=== PATIENT | female | born 1970 | race American Indian/Alaskan Native ===

== ENCOUNTER 2016-02-25 22:09 | Inpatient (IN) | payer MEDICARE ==
[2016-02-25 23:43] LABS: Basophils % (Auto) 0.3 % (0.0-1.8); Eosinophils % (Auto) 6.5 % (0.0-4.3); Hematocrit 27.4 % (30.3-42.9); Hemoglobin 8.6 gm/dl (10.1-14.3); Mean Corpuscular HGB Conc 31 % (30-34); Mean Corpuscular Volume 74 fl (79-97); Platelet Count 331 K/mm3 (140-440); Red Blood Count 3.73 M/mm3 (3.65-5.03); White Blood Count 9.5 K/mm3 (4.5-11.0)
[2016-02-25 23:46] LABS: BUN/Creatinine Ratio 13.33; Blood Urea Nitrogen 20 mg/dL (7-17); Calcium 8.7 mg/dL (8.4-10.2); Carbon Dioxide 21 mmol/L (22-30); Chloride 99.5 mmol/L (98-107); Glucose 100 mg/dL (65-100); Potassium 4.4 mmol/L (3.6-5.0); Sodium 136 mmol/L (137-145)
[2016-02-25 23:53] LABS: Anion Gap 20 mmol/L
[2016-02-25 23:55] LABS: Mean Corpuscular Hemoglobin 23 pg (28-32); Red Cell Distribution Width 20.4 % (13.2-15.2)
[2016-02-26] MEDS ORDERED: DUONEB 0.5 MG-3 MG/3 ML SOLN IH ONE ×2 (01:30→05:12)
[2016-02-26] MEDS ORDERED: TESSALON PERLES PO ONE (01:30)
[2016-02-26] MEDS ORDERED: MUCINEX ER PO ONE (01:31)
[2016-02-26] MEDS ORDERED: MORPHINE IM ONE (01:31)
[2016-02-26] MEDS ORDERED: LASIX PO ONE (01:32)
[2016-02-26] MEDS ORDERED: ZOFRAN IV ONE (01:42)
[2016-02-26] MEDS ORDERED: LASIX IV ONE (01:42)
[2016-02-26] MEDS ORDERED: APRESOLINE IV ONE (01:42)
[2016-02-26] MEDS ORDERED: MORPHINE IV ONE (01:42)
[2016-02-26] MEDS ORDERED: ZITHROMAX PO ONE (01:43)
--- NOTE | 2016-02-26 01:44 | Emergency Department Report ---
HPI - General Chief Complaint: Dyspnea/Respdistress Time Seen by Provider: 02/25/16 23:05 - HPI HPI: The patient is a 45-year-old female with a history of long-standing severe hypertension and diabetes, who presents for evaluation of cough and dyspnea. The patient reports that she has expressed cough for the past one week, intermittently productive, worse for the past 2-3 days, moderate to severe, and associated with aching in quality bilateral chest pain elicited with coughing and relieved at rest. Chest secondary complaint of dyspnea for greater than 3- 4 weeks. She states that her dyspnea has been progressive, severe since her cough began this past week. She states that her dyspnea is exacerbated with exertion and lying flat, and relieved with sitting up and rest. The patient denies fever, syncope, palpitations, hemoptysis, unilateral leg swelling, recent immobilization, history of DVT or PE, hx cancer. ED Past Medical Hx - Past Medical History Previous Medical History?: Yes Hx Hypertension: Yes (non compliant) Additional medical history: CHRONIC PAIN --RIGHT LEG / LOWER BACK. OBESITY - Surgical History Past Surgical History?: Yes Hx Cholecystectomy: Yes Additional Surgical History: RIGHT LEG SURGERY. . TUBAL LIGATION - Social History Smoking Status: Former Smoker Substance Use Type: None - Medications Home Medications: Home Medications Medication Instructions Recorded Confirmed Last Taken Type ALBUTEROL Inhaler [ProAir HFA 2 puff IH QID PRN #1 inhalation 02/26/16 Unknown Rx Inhaler] Amlodipine Besylate [Norvasc] 5 mg PO DAILY 02/26/16 02/26/16 Unknown History Aspirin EC [Ecotrin] 325 mg PO QDAY 02/26/16 02/26/16 Unknown History AtorvaSTATin [Lipitor] 20 mg PO QHS 02/26/16 02/26/16 Unknown History Azithromycin [Zithromax Z-JUAN CARLOS] 250 mg PO QDAY #6 tablet 02/26/16 Unknown Rx Cyclobenzaprine HCl [Flexeril 5 MG 10 mg PO TID 02/26/16 02/26/16 Unknown History TAB] Furosemide [Lasix] 20 mg PO QDAY #30 tablet 02/26/16 Unknown Rx Ibuprofen [Motrin] 800 mg PO TID PRN 02/26/16 02/26/16 Unknown History Metformin HCl [Glucophage] 500 mg PO DAILY 02/26/16 02/26/16 Unknown History Metoprolol Tartrate [Lopressor] 100 mg PO BID 02/26/16 02/26/16 Unknown History Promethazine /Codeine 5 ml PO Q6H PRN #100 ml 02/26/16 Unknown Rx [Phenergan/Codeine 6.25-10 mg/5Ml] ED Review of Systems ROS: Stated complaint: CHEST PAIN/VOMITING Other details as noted in HPI Constitutional: denies: fever ENT: denies: throat or neck pain Respiratory: reports cough, shortness of breath Cardiovascular: denies: chest pain Endocrine: denies unexplained weight loss or gain Gastrointestinal: denies: abdominal pain, nausea Genitourinary: denies: dysuria Musculoskeletal: denies: leg swelling Skin: denies: rash Neurological: denies: headache Hematological/Lymphatic: denies: easy bleeding or easy bruising Psych: denies sadness or hopelessness Physical Exam - Physical Exam Vital Signs: Vital Signs 02/25/16 02/25/16 02/25/16 22:23 23:10 23:49 Temperature 98.5 F 98.2 F 98.5 F Pulse Rate 85 77 76 Respiratory 20 30 H 20 Rate Blood Pressure 139/84 Blood Pressure 142/97 [Left] Blood Pressure 145/88 [Right] O2 Sat by Pulse 90 96 96 Oximetry Physical Exam: General: well-nourished, well-developed, no acute distress Head: Normocephalic, atraumatic Eyes: normal sclera ENT: Mucous membranes are pink and moist Neck: trachea midline, neck supple, No neck stiffness, no cervical adenopathy Respiratory: Mildly diminished bibasilar breath sounds and rales present, no costal retractions, no respiratory distress Cardio: S1 and S2 present, no murmurs, rubs, gallops, capillary refill is brisk Abdomen: Normoactive bowel sounds, soft abdomen, no rigidity, no guarding or rebound tenderness Musc: 1+ pitting edema of the bilateral lower extremities present Skin: No rash Neuro: no facial drooping, normal speech Psych: Normal affect ED Course Vital Signs 02/25/16 02/25/16 02/25/16 22:23 23:10 23:49 Temperature 98.5 F 98.2 F 98.5 F Pulse Rate 85 77 76 Respiratory 20 30 H 20 Rate Blood Pressure 139/84 Blood Pressure 142/97 [Left] Blood Pressure 145/88 [Right] O2 Sat by Pulse 90 96 96 Oximetry ED Medical Decision Making - Lab Data Result diagrams: 02/25/16 23:18 02/25/16 23:18 - Medical Decision Making The patient was seen and examined by myself. The patient is placed on a athletic monitor and continuous pulse ox. On initial evaluation, the patient was found to be in no distress. Evaluation orders were placed. EKG was negative for findings suggestive of acute cardiac infarct. The patient is given Tessalon Perles for their cough and Mucinex for nasal congestion. The patient is given a DuoNeb breathing treatment. Chest x-ray exhibits cardiomegaly and central pulmonary vascular congestion, and otherwise was negative for focal consolidation, pneumothorax, or other emergent cardiopulmonary disease process. The patient is given a tablet of Lasix for her likely undiagnosed congestive heart failure. She is also given a tablet of azithromycin. Lab results revealed elevated BNP of 407, consistent with chest x-ray and exam findings suggestive of congestive heart failure, and otherwise labs were not concerning, including 2 sets of negative troponin. The patient was reevaluated and reported that their symptoms were markedly improved. On reexamination the patient is found to have normal respiratory rate and O2 sat on pulse oximetry, with no costal retractions or diminishment of breath sounds on auscultation. The patient is stable for discharge with outpatient follow-up. The patient is given follow-up and return instructions. The patient expressed understanding and agreed with the plan. The patient is discharged in stable condition. Critical care attestation.: If time is entered above; I have spent that time in minutes in the direct care of this critically ill patient, excluding procedure time. ED Disposition Clinical Impression: Upper respiratory infection, acute, Acute viral syndrome, Hypertensive urgency , Acute chest pain Acute CHF (congestive heart failure) Qualifiers: Congestive heart failure type: systolic Qualified Code(s): I50.21 - Acute systolic (congestive) heart failure Disposition: DISCHARGED TO HOME OR SELFCARE Is pt being admited?: No Does the pt Need Aspirin: No Condition: Stable Instructions: Heart Failure (ED), Upper Respiratory Infection (ED), Viral Syndrome (ED), Low Sodium Diet (ED), Thoracic Pain (ED), Chest Pain (ED) Additional Instructions: Make sure to follow with Dr. Boyd, the refinery operator assistant referred to today, or your gate cutter for referral to a refinery operator assistant of your choice. Prescriptions: Furosemide [Lasix] 20 mg PO QDAY #30 tablet Promethazine /Codeine [Phenergan/Codeine 6.25-10 mg/5Ml] 5 ml PO Q6H PRN #100 ml PRN Reason: cough ALBUTEROL Inhaler [ProAir HFA Inhaler] 2 puff IH QID PRN #1 inhalation PRN Reason: Shortness Of Breath Azithromycin [Zithromax Z-JUAN CARLOS] 250 mg PO QDAY #6 tablet Referrals: PRIMARY CARE, [Primary Care Provider] - 3-5 Days OKSANA BOYD MD [Staff Physician] - 3-5 Days Time of Disposition: 01:30
[2016-02-26 04:09] LABS: ISTAT Base Excess -3; ISTAT DEVICE 0; ISTAT HCO3 22.2; ISTAT PCO2 38.6 (35-45); ISTAT PH 7.368 (7.35-7.45); ISTAT PO2 48 (80-105); ISTAT SO2 82; ISTAT TCO2 23
--- NOTE | 2016-02-26 04:12 | Emergency Department Report ---
Blank Doc - Documentation Documentation: Nurse brought to my attention that prior to discharge patient oxygen dropped 82% . ABG ordered on room air confirmed hypoxia with PaO2 of 48 and oxygen of 82% on room air. Acid-base status is normal. Patient states she did have diuresis after receiving the Lasix in the ED. Patient be admitted to the hospital for new-onset CHF with associated hypoxia.
--- NOTE | 2016-02-26 05:22 | History and Physical Report ---
History of Present Illness Date of examination: 02/26/16 History of present illness: 45-year-old woman with a history of hypertension, diagnosed recently with diabetes, hyperlipidemia 3 weeks ago comes emergency room with complaints of shortness of breath. Patient has been having shortness of breath with cough productive of yellow phlegm, subjective fever and chills. She also complaining of right sided chest pain which she described as sharp, intermittent in nature lasting for 20-30 minutes, no radiation, intensity 6/10 and she cannot identify exacerbating or relieving factors. Also complaining of dyspnea on exertion, nausea vomiting, no diaphoresis or palpitation. She [place] [facility] [place], she spent one week in the hospital, it's unclear what workup was done very she stayed in addition to the diagnosis of diabetes, hyperlipidemia she was also told that she had fluid around her heart, review of her medications, she was not discharged on diuretics. The patient was given 80 mg IV Lasix in the emergency room, sent for discharge but was noted to be hypoxic off oxygen Patient denies chest pain, palpitation, abdominal pain, hematochezia, dysuria, frequency, focal weakness, dysarthria, fever chills, polydipsia polyuria, hot or cold intolerance, easy bruisability, or rash or bleeding from mucosal membrane, rhinorrhea, epistaxis, earache, tinnitus, blurry vision, eye discharge , anxiety, depression. Other review of systems negative PAST SURGICAL HISTORY: Tubal ligation, , cholecystectomy SOCIAL HISTORY: Denies alcohol, tobacco, drugs FAMILY HISTORY: Hypertension diabetes Medications and Allergies Allergies Allergy/AdvReac Type Severity Reaction Status Date / Time No Known Allergies Allergy Verified 06/28/15 20:12 Home Medications Medication Instructions Recorded Confirmed Last Taken Type ALBUTEROL Inhaler [ProAir HFA 2 puff IH QID PRN #1 inhalation 02/26/16 Unknown Rx Inhaler] Amlodipine Besylate [Norvasc] 5 mg PO DAILY 02/26/16 02/26/16 Unknown History Aspirin EC [Ecotrin] 325 mg PO QDAY 02/26/16 02/26/16 Unknown History AtorvaSTATin [Lipitor] 20 mg PO QHS 02/26/16 02/26/16 Unknown History Azithromycin [Zithromax Z-JUAN CARLOS] 250 mg PO QDAY #6 tablet 02/26/16 Unknown Rx Cyclobenzaprine HCl [Flexeril 5 MG 10 mg PO TID 02/26/16 02/26/16 Unknown History TAB] Furosemide [Lasix] 20 mg PO QDAY #30 tablet 02/26/16 Unknown Rx Ibuprofen [Motrin] 800 mg PO TID PRN 02/26/16 02/26/16 Unknown History Metformin HCl [Glucophage] 500 mg PO DAILY 02/26/16 02/26/16 Unknown History Metoprolol Tartrate [Lopressor] 100 mg PO BID 02/26/16 02/26/16 Unknown History Promethazine /Codeine 5 ml PO Q6H PRN #100 ml 02/26/16 Unknown Rx [Phenergan/Codeine 6.25-10 mg/5Ml] Active Meds: Active Medications Methylprednisolone Sodium Succinate (Solu-Medrol) 125 mg IV Q6H SONYA Exam - Physical Exam Narrative exam: Gen. appearance: Patient lying in bed, no apparent distress HEENT: Normocephalic, atraumatic, pupils equally round and reactive to light, extraocular movement intact, and no sclericterus,. No JVD or thyromegaly or nodule,neck supple, no carotid bruit ,mucous membranes moist, no exudate or erythema Heart: S1, S2, regular rate and rhythm Lungs: Diffuse rhonchi bilaterally, breathing comfortable Abdomen: Positive bowel sounds, nontender, nondistended, no organomegaly Extremity: No edema, cyanosis, clubbing Skin: No rash, nodules, warm, dry Neuro: Oriented 3, cranial nerves II-12 intact, speech is fluent, motor and sensory intact - Constitutional Vitals: Temp Pulse Resp BP Pulse Ox 98.5 F 78 24 142/97 96 02/25/16 23:49 02/26/16 02:20 02/26/16 02:20 02/25/16 23:49 02/25/16 23:49 Results - Labs CBC & Chem 7: 02/25/16 23:18 02/25/16 23:18 Labs: Abnormal lab results 02/25/16 02/25/16 02/26/16 Range/Units 23:18 23:18 03:59 Hgb 8.6 L (10.1-14.3) gm/dl Hct 27.4 L (30.3-42.9) % MCV 74 L (79-97) fl MCH 23 L (28-32) pg RDW 20.4 H (13.2-15.2) % Lymph % (Auto) 9.9 L (13.4-35.0) % [place] % (Auto) 13.6 H (0.0-7.3) % Eos % (Auto) 6.5 H (0.0-4.3) % Lymph # 0.9 L (1.2-5.4) K/mm3 [place] # 1.3 H (0.0-0.8) K/mm3 Eos # 0.6 H (0.0-0.4) K/mm3 POC ABG pO2 48 L (80-105) Sodium 136 L (137-145) mmol/L Carbon Dioxide 21 L (22-30) mmol/L BUN 20 H (7-17) mg/dL Creatinine 1.5 H (0.7-1.2) mg/dL - Imaging and Cardiology EKG: image reviewed (nsr 84) Chest x-ray: image reviewed (b/l opacities, readf by me) Assessment and Plan Acute bronchitis Hypertension uncontrolled Diabetes type 2 Hyperlipidemia Admits medicine Start high-dose IV steroids, IV Levaquin, IV hydralazine for blood pressure control Obtain sputum culture, CT chest, cardiac enzymes [place] [facility] [place] fingersticks initiate insulin sliding scale Start DVT prophylaxis
--- NOTE | 2016-02-26 06:27 | XRay Report ---
FINAL REPORT PROCEDURE: CT CHEST WO CON TECHNIQUE: Computerized axial tomography of the chest was performed without contrast material. This study is performed without intravenous contrast and the sensitivity for pathology, including neoplasms, adenopathy, abscess, pulmonary embolism and aortic dissection, is reduced. HISTORY: sob COMPARISON: No prior studies are available for comparison. TECHNICAL QUALITY: Satisfactory. FINDINGS: Heart and pericardium: Normal. Thoracic aorta: Normal. Pulmonary vasculature: Normal. Lymph nodes: No enlarged thoracic lymph nodes. Lungs: There is a mild scattered pneumonitis pattern in both lungs. No effusion or pneumothorax. The central airway is patent. Pleural space: No effusion, thickening, or pneumothorax. Musculoskeletal structures: No significant abnormality. Upper abdominal structures: No significant abnormality. IMPRESSION: Mild scattered pneumonitis pattern throughout both lungs. No effusion or pneumothorax..
[2016-02-26] MEDS ORDERED: D50W (25GM) IV PRN (06:33)
[2016-02-26] MEDS ORDERED: MILK OF MAGNESIA PO PRN (06:33)
[2016-02-26] MEDS ORDERED: ZOFRAN IV PRN (06:33)
[2016-02-26] MEDS ORDERED: DULCOLAX PR PRN (06:33)
[2016-02-26] MEDS ORDERED: TYLENOL PO PRN (06:33)
[2016-02-26] MEDS: LEVAQUIN 750MG/150ML 150 ML IV SCH ×2 (07:00→09:01)
[2016-02-26 07:27] LABS: Creatine Kinase 37 units/L (30-135); Creatine Kinase MB < 1.0 ng/mL (0.0-4.0)
[2016-02-26] MEDS ORDERED: LOVENOX SUB-Q SCH (10:00)
[2016-02-26] MEDS ORDERED: LEVAQUIN 750MG/150ML 150 ML IV SCH (11:00)
[2016-02-26 14:40] LABS: Creatine Kinase 29 units/L (30-135); Creatine Kinase MB < 1.0 ng/mL (0.0-4.0)
[2016-02-26] MEDS: APRESOLINE IV PRN (21:55)
[2016-02-26] MEDS: PERCOCET 5/325 PO PRN (21:56)
[2016-02-26] MEDS: NOVOLOG SUB-Q SCH (21:58)
--- NOTE | 2016-02-26 23:47 | Admit Criteria Form ---
Admission Criteria Documentation: HEART FAILURE: COMMON COMPLICATIONS Clinical Indications for Inpatient Care (Place 'X' for any and all applicable criteria): Ongoing inpatient care may be indicated for heart failure with ANY ONE of the following (1)(2)(3)(4)(5): [ ]I. Ongoing need for care for primary condition requiring frequent therapy adjustments because of changes in cardiac function (eg, drug dosage changes for drugs that are renally metabolized) [X ]II. New-onset heart failure [ ]III. Heart failure with decreased urine output not responsive to attempts to optimize volume status [ ]IV. Acute cardiac ischemia causing or associated with failure [X ]V. Complications of heart failure, including ANY ONE of the following: [ ]a) Pericardial effusion [ ]b) Symptomatic pleural effusion [ X]c) O2 saturation <90% or PO2 < 60 mm Hg (8.0 kPa) on room air or require baseline supplemental O2 [ ]d) Tachypnea [ ]e) Dyspnea [ ]f) Syncope [ ]g) Change in mental status [ ]h) Acute renal insufficiency that is severe (reduction of more than 50% in estimated glomerular filtration rate from baseline) or progressive reduction of more than 25% in estimated glomerular filtration rate from baseline, with creatinine continuing to rise) [ ]i) Hemodynamic instability [ ]j) Anasarca [ ]k) Clinically significant metabolic abnormalities due to heart failure (eg, new-onset metabolic acidosis) Extended stay beyond goal length of stay for primary condition may be needed until ALL of the following are present(1)(3): [ ]a) Stable and effective diuretic regimen established (or patient on stable dialysis regimen if in chronic renal failure) [ ]b) Breathing comfortably at rest [ ]c) Saturation of arterial oxygen greater than 90% or at acceptable baseline [ ]d) Pulmonary edema absent or improved [ ]e) Hemodynamic stability [ ]f) Volume status acceptable on oral medication [ ]g) Peripheral or sacral edema absent or improved [ ]h) Renal function stable and manageable at a lower level of care [ ]i) Complications (eg, pleural effusion) resolved or manageable at a lower level of care [ ]j) Patient or caregiver has received written discharge instructions or educational material addressing activity level, diet, discharge medications, follow-up appointment, weight monitoring, and what to do if symptoms worsen The original [employer] content created by [employer] has been revised. The portions of the content which have been revised are identified through the use of italic text or in bold, and [facility] has neither reviewed nor approved the modified material.All other unmodified content is copyright [facility]. Please see references footnoted in the original [facility] edition 2016 Admission Criteria Met: Yes
[2016-02-27] MEDS: PERCOCET 5/325 PO PRN ×2 (05:05→17:09)
[2016-02-27] MEDS ORDERED: FLUARIX QUAD 2016-2017(36 MOS+) IM ONE ×2 (06:05→12:00)
[2016-02-27] MEDS: LEVAQUIN 750MG/150ML 150 ML IV SCH (06:24)
[2016-02-27 08:24] LABS: Basophils % (Auto) 0.1 % (0.0-1.8); Hematocrit 26.4 % (30.3-42.9); Hemoglobin 8.2 gm/dl (10.1-14.3); Mean Corpuscular HGB Conc 31 % (30-34); Mean Corpuscular Volume 73 fl (79-97); Platelet Count 329 K/mm3 (140-440); Red Blood Count 3.62 M/mm3 (3.65-5.03); Red Cell Distribution Width 19.9 % (13.2-15.2); White Blood Count 8.7 K/mm3 (4.5-11.0)
[2016-02-27 08:27] LABS: Mean Corpuscular Hemoglobin 23 pg (28-32)
[2016-02-27] MEDS: LOPRESSOR PO SCH ×2 (11:00→22:38)
[2016-02-27] MEDS: LOVENOX SUB-Q SCH (11:47)
[2016-02-27] MEDS: NORVASC PO SCH (11:47)
[2016-02-27] MEDS: NOVOLOG SUB-Q SCH ×3 (12:00→23:52)
--- NOTE | 2016-02-27 19:22 | Progress Note ---
Assessment and Plan Assessment and plan: --Acute exacerbation of bronchial asthma Oxygen titrated to O2 sats more than 90%, nebulizers, IV steroids Inhalation steroids supportive care --Acute bronchitis Bronchodilators, IV antibiotics and IV steroids --Hypertension uncontrolled Resume home antihypertensives, when necessary medications --Diabetes type 2; Accu-Chek sliding scale coverage and ADA diet Insulin as needed --Hyperlipidemia ,stable on lipid-lowering medications --DVT prophylaxis with Lovenox Closely monitor the patient and adjust management as needed Home oxygen evaluation at the time of discharge Possible discharge in 1-2 days if stable Plan of care discussed with the patient as well as the nurse History Interval history: Patient seen and evaluated medical records reviewed Patient feels slightly better still complains of shortness of breath and wheezing Denies any chest pain Alert awake oriented 3 not in acute distress Vital signs reviewed stable Hospitalist Physical - Constitutional Vitals: Temp Pulse Resp BP Pulse Ox 97.8 F 104 H 20 169/91 90 02/27/16 17:38 02/27/16 17:38 02/27/16 17:38 02/27/16 17:38 02/27/16 17:38 General appearance: Present: no acute distress, well-nourished - EENT Eyes: Present: PERRL, EOM intact - Neck Neck: Present: supple, normal ROM - Respiratory Respiratory effort: normal Respiratory: bilateral: diminished, wheezing, negative: rales, rhonchi - Cardiovascular Rhythm: regular Heart Sounds: Present: S1 & S2 - Extremities Extremities: no ischemia, pulses intact, pulses symmetrical Peripheral Pulses: within normal limits - Abdominal General gastrointestinal: soft, non-tender, non-distended, normal bowel sounds - Integumentary Integumentary: Present: clear, warm - Psychiatric Psychiatric: appropriate mood/affect, cooperative - Neurologic Neurologic: CNII-XII intact, moves all extremities Results - Labs CBC & Chem 7: 02/27/16 08:10 02/25/16 23:18 Labs: Laboratory Last Values WBC 8.7 K/mm3 (4.5-11.0) 02/27/16 08:10 RBC 3.62 M/mm3 (3.65-5.03) L 02/27/16 08:10 Hgb 8.2 gm/dl (10.1-14.3) L 02/27/16 08:10 Hct 26.4 % (30.3-42.9) L 02/27/16 08:10 MCV 73 fl (79-97) L 02/27/16 08:10 MCH 23 pg (28-32) L 02/27/16 08:10 MCHC 31 % (30-34) 02/27/16 08:10 RDW 19.9 % (13.2-15.2) H 02/27/16 08:10 Plt Count 329 K/mm3 (140-440) 02/27/16 08:10 Lymph % (Auto) 6.7 % (13.4-35.0) L 02/27/16 08:10 [place] % (Auto) 6.6 % (0.0-7.3) 02/27/16 08:10 Eos % (Auto) 0.0 % (0.0-4.3) 02/27/16 08:10 Baso % (Auto) 0.1 % (0.0-1.8) 02/27/16 08:10 Lymph # 0.6 K/mm3 (1.2-5.4) L 02/27/16 08:10 [place] # 0.6 K/mm3 (0.0-0.8) 02/27/16 08:10 Eos # 0.0 K/mm3 (0.0-0.4) 02/27/16 08:10 Baso # 0.0 K/mm3 (0.0-0.1) 02/27/16 08:10 Seg Neutrophils % 86.6 % (40.0-70.0) H 02/27/16 08:10 Seg Neutrophils # 7.5 K/mm3 (1.8-7.7) 02/27/16 08:10 POC ABG pH 7.368 (7.35-7.45) 02/26/16 03:59 POC ABG pCO2 38.6 (35-45) 02/26/16 03:59 POC ABG pO2 48 (80-105) L 02/26/16 03:59 POC ABG HCO3 22.2 02/26/16 03:59 POC ABG Total CO2 23 02/26/16 03:59 POC ABG O2 Sat 82 02/26/16 03:59 POC ABG Base Excess -3 02/26/16 03:59 FiO2 21 % 02/26/16 03:59 Sodium 136 mmol/L (137-145) L 02/25/16 23:18 Potassium 4.4 mmol/L (3.6-5.0) 02/25/16 23:18 Chloride 99.5 mmol/L (98-107) 02/25/16 23:18 Carbon Dioxide 21 mmol/L (22-30) L 02/25/16 23:18 Anion Gap 20 mmol/L 02/25/16 23:18 BUN 20 mg/dL (7-17) H 02/25/16 23:18 Creatinine 1.5 mg/dL (0.7-1.2) H 02/25/16 23:18 Estimated GFR 46 ml/min 02/25/16 23:18 BUN/Creatinine Ratio 13.33 % 02/25/16 23:18 Glucose 100 mg/dL (65-100) 02/25/16 23:18 POC Glucose 138 (70-105) H 02/27/16 15:56 Calcium 8.7 mg/dL (8.4-10.2) 02/25/16 23:18 Total Creatine Kinase 29 units/L (30-135) L 02/26/16 13:49 CK-MB (CK-2) < 1.0 ng/mL (0.0-4.0) 02/26/16 13:49 CK-MB (CK-2) Rel Index 3.4 (0-4) 02/26/16 13:49 Troponin T < 0.010 ng/mL (0.00-0.029) 02/26/16 13:49 NT-Pro-B Natriuret Pep 407.3 pg/mL (0-450) 02/26/16 01:28 HCG, Qual Negative (Negative) 02/25/16 23:18
[2016-02-27] MEDS: APRESOLINE IV PRN (21:06)
[2016-02-27] MEDS ORDERED: ROBITUSSIN PO PRN (21:54)
[2016-02-28] MEDS: PERCOCET 5/325 PO PRN (02:18)
[2016-02-28] MEDS: LEVAQUIN 750MG/150ML 150 ML IV SCH (06:32)
[2016-02-28] MEDS: NOVOLOG SUB-Q SCH ×2 (08:50→13:06)
[2016-02-28] MEDS: NORVASC PO SCH (09:28)
[2016-02-28] MEDS: LOVENOX SUB-Q SCH (09:28)
[2016-02-28] MEDS: LOPRESSOR PO SCH (09:28)
[2016-02-28 11:31] VITALS: BP 163/90
--- NOTE | 2016-02-28 13:39 | Discharge Summary ---
Providers - Providers Date of Admission: 02/26/16 06:33 Date of discharge: 02/28/16 Attending physician: CRESENCIO MARSH Primary care physician: INFORMATION SECURITY ARCHITECT Hospitalization Condition: Stable Disposition: DISCHARGED TO HOME OR SELFCARE Time spent for discharge: 32 min Core Measure Documentation - Palliative Care Palliative Care/ Comfort Measures: Not Applicable - Core Measures Any of the following diagnoses?: history only Exam - Constitutional Vitals: Temp Pulse Resp BP Pulse Ox 97.5 F L 82 18 163/90 98 02/28/16 11:30 02/28/16 13:13 02/28/16 11:30 02/28/16 11:30 02/28/16 11:30 General appearance: Present: no acute distress, well-nourished - EENT Eyes: Present: PERRL, EOM intact - Neck Neck: Present: supple, normal ROM - Respiratory Respiratory effort: normal Respiratory: bilateral: diminished, negative: rales, rhonchi, wheezing - Cardiovascular Rhythm: regular Heart Sounds: Present: S1 & S2 - Extremities Extremities: no ischemia, pulses intact, pulses symmetrical Peripheral Pulses: within normal limits - Abdominal General gastrointestinal: Present: soft, non-tender, non-distended, normal bowel sounds - Integumentary Integumentary: Present: clear, warm - Musculoskeletal Musculoskeletal: strength equal bilaterally - Psychiatric Psychiatric: appropriate mood/affect, cooperative - Neurologic Neurologic: CNII-XII intact, moves all extremities Plan Activity: no restrictions Diet: diabetic Additional Instructions: Patient was evaluated for home oxygen set up. Not a candidate for home oxygen as her room air O2 sats are between 94-95% Follow up with: OKSANA BOYD MD [Staff Physician] - 3-5 Days PRIMARY CARE, [Primary Care Provider] - 3-5 Days Prescriptions: ALBUTEROL Inhaler [ProAir HFA Inhaler] 2 puff IH QID PRN #1 inhalation PRN Reason: Shortness Of Breath Azithromycin [Zithromax Z-JUAN CARLOS] 250 mg PO QDAY #6 tablet Furosemide [Lasix TAB] 20 mg PO QDAY #30 tablet Prednisone [predniSONE 10 mg (6-Day Pack, 21 Tabs)] 10 mg PO .TAPER #1 tab.ds.pk oxyCODONE /ACETAMINOPHEN [Percocet 5/325] 1 tab PO QHS PRN #7 tablet PRN Reason: Pain
[2016-02-29] MEDS ORDERED: LEVAQUIN PO SCH (10:00)
== END 2016-02-28 15:05 | disposition home or self-care (01) | DRG 304 ==
LOC: ED 22:09 → 4A 02-26 06:33
PROVIDERS: ADMIT Internal Medicine; ATTEND Internal Medicine
PROC: 3E0234Z Introduction of Serum, Toxoid and Vaccine into Muscle, Percutaneous Approach (ICD-10-PCS; principal; 2016-02-27)
DX: I16.0 Hypertensive urgency (principal); I50.21 Acute systolic (congestive) heart failure; J45.901 Unspecified asthma with (acute) exacerbation; J20.9 Acute bronchitis, unspecified; E11.9 Type 2 diabetes mellitus without complications; E78.5 Hyperlipidemia, unspecified; G89.29 Other chronic pain; M54.5 Low back pain; E66.9 Obesity, unspecified; I11.0 Hypertensive heart disease with heart failure; Z91.19 Patient's noncompliance with other medical treatment and regimen; Z90.49 Acquired absence of other specified parts of digestive tract; Z68.37 Body mass index [BMI] 37.0-37.9, adult; Z98.890 Other specified postprocedural states; Z98.51 Tubal ligation status; Z87.891 Personal history of nicotine dependence; Z79.82 Long term (current) use of aspirin; Z79.899 Other long term (current) drug therapy; Z79.84 Long term (current) use of oral hypoglycemic drugs; Z23 Encounter for immunization; Z82.49 Family history of ischemic heart disease and other diseases of the circulatory system; Z83.3 Family history of diabetes mellitus
CPT/HCPCS: 36415; 71020; 71250; 80048; 82550; 82553; 82803; 82962; 83880; 84484; 84703; 85025; 90686; 93005; 93010; 94640; 94644; 94760; 96374; 96375; J0360; J1650; J1815; J1940; J1956; J2270; J2405; J2930

== ENCOUNTER 2016-04-12 15:30 | Outpatient (CLI) | payer MEDICARE | END 2016-04-12 15:31 | disposition home or self-care (01) | LOC: LABHHL 15:30 | PROVIDERS: ATTEND Surgery | DX: N63 Unspecified lump in breast (principal) | CPT/HCPCS: 88305 ==

== ENCOUNTER 2016-05-12 09:40 | Emergency (ER) | payer MEDICARE ==
[2016-05-12] MEDS ORDERED: NORCO 5/325 PO ONE (16:25)
--- NOTE | 2016-05-12 16:28 | Emergency Department Report ---
HPI - General Chief Complaint: Seizure Time Seen by Provider: 05/12/16 16:11 - HPI HPI: This is a 45-year-old -[place] female who presents to the emergency department via EMS from home with complaint of a witnessed seizure. The patient was taking a shower this morning and says that the last thing she remembers is putting soap on her hands and then woke up in the ambulance. The patient does have a history of seizures but has been about a year or so since her last seizure. However the patient stopped taking seizure medication for years ago, back in 2012. This occurred because the patient was switching doctors, locations, insurance, and never was able to follow-up. However the patient does not remember exactly which seizure medication she used to be on. The seizure was witnessed by the patient's daughter. She allegedly went unconscious and went down in the bathtub and bit her tongue as she was bleeding from her mouth. The patient is currently awake and alert and says she complains of a headache. She has a past medical history of CHF, diabetes, hypertension, seizures, chronic back pains. She has a past surgical history of right leg surgery, and tubal ligation. She currently has a primary care and insurance through the [employer]. ED Past Medical Hx - Past Medical History Previous Medical History?: Yes Hx Hypertension: Yes Hx Congestive Heart Failure: Yes Hx Diabetes: Yes Hx Seizures: Yes (2011) Hx Asthma: No Hx COPD: No Additional medical history: CHRONIC PAIN --RIGHT LEG / LOWER BACK. OBESITY - Surgical History Past Surgical History?: Yes Hx Cholecystectomy: Yes Additional Surgical History: RIGHT LEG SURGERY. . TUBAL LIGATION - Social History Smoking Status: Former Smoker Substance Use Type: Prescribed - Medications Home Medications: Home Medications Medication Instructions Recorded Confirmed Last Taken Type ALBUTEROL Inhaler [ProAir HFA 2 puff IH QID PRN #1 inhalation 02/26/16 Unknown Rx Inhaler] Amlodipine Besylate [Norvasc] 5 mg PO DAILY 02/26/16 02/26/16 Unknown History Aspirin EC [Aspirin Enteric Coated 325 mg PO QDAY 02/26/16 02/26/16 Unknown History TAB] AtorvaSTATin [Lipitor] 20 mg PO QHS 02/26/16 02/26/16 Unknown History Azithromycin [Zithromax Z-JUAN CARLOS] 250 mg PO QDAY #6 tablet 02/26/16 Unknown Rx Cyclobenzaprine HCl [Flexeril 5 MG 10 mg PO TID 02/26/16 02/26/16 Unknown History TAB] Furosemide [Lasix TAB] 20 mg PO QDAY #30 tablet 02/26/16 Unknown Rx Metformin HCl [Glucophage] 500 mg PO DAILY 02/26/16 02/26/16 Unknown History Metoprolol Tartrate [Lopressor] 100 mg PO BID 02/26/16 02/26/16 Unknown History Prednisone [predniSONE 10 mg 10 mg PO .TAPER #1 tab.ds.pk 02/28/16 Unknown Rx (6-Day Pack, 21 Tabs)] oxyCODONE /ACETAMINOPHEN [Percocet 1 tab PO QHS PRN #7 tablet 02/28/16 Unknown Rx 5/325] levETIRAcetam [Keppra TAB] 500 mg PO BID #60 tablet 05/12/16 Unknown Rx ED Review of Systems ROS: Stated complaint: SEIZURES Other details as noted in HPI Comment: All other systems reviewed and negative Constitutional: denies: chills, fever Eyes: denies: eye pain, eye discharge, vision change ENT: other (bit her tongue). denies: ear pain, throat pain Respiratory: denies: cough, shortness of breath, wheezing Cardiovascular: denies: chest pain, palpitations Gastrointestinal: denies: abdominal pain, nausea, diarrhea Genitourinary: denies: urgency, dysuria, discharge Musculoskeletal: denies: back pain, joint swelling, arthralgia Skin: denies: rash, lesions Neurological: headache. denies: numbness Physical Exam - Physical Exam Vital Signs: Vital Signs 05/12/16 09:53 Temperature 99.3 F Pulse Rate 99 H Respiratory 20 Rate Blood Pressure 152/107 O2 Sat by Pulse 99 Oximetry Physical Exam: GENERAL: The patient is well-developed well-nourished. HEENT: Normocephalic. Atraumatic. Extraocular motions are intact. Patient has moist mucous membranes. Pupils equal reactive to light bilaterally. No nystagmus. Oropharynx is clear. There is a small laceration to the right lateral underside of the tongue but no current bleeding and it is very small at less than 0.5 cm. NECK: Supple. Trachea is midline. CHEST/LUNGS: Clear to auscultation. There is no respiratory distress noted. HEART/CARDIOVASCULAR: Regular. There is no tachycardia. There is no gallop rub or murmur. ABDOMEN: Abdomen is soft, nontender. Patient has normal bowel sounds. There is no abdominal distention. SKIN: Warm and dry. NEURO: The patient is awake, alert, and oriented. The patient is cooperative. The patient has no focal neurologic deficits. The patient has normal speech. Cranial nerves II through XII grossly intact. MUSCULOSKELETAL: There is no tenderness or deformity. There is no limitation range of motion. There is no evidence of acute injury. Muscle strength 5 out of 5 for upper and lower extremity bilaterally. ED Course Vital Signs 05/12/16 09:53 Temperature 99.3 F Pulse Rate 99 H Respiratory 20 Rate Blood Pressure 152/107 O2 Sat by Pulse 99 Oximetry ED Medical Decision Making - Lab Data Result diagrams: 05/12/16 16:36 05/12/16 16:36 - EKG Data -: EKG Interpreted by [facility] EKG shows normal: axis, intervals, QRS complexes, ST-T waves Rate: normal - EKG Data When compared to previous EKG there are: previous EKG unavailable Interpretation: other (Junctional Rhythm) - Radiology Data Radiology results: report reviewed CT of the head without contrast shows no acute intracranial abnormality. Ill- defined bilateral periventricular hypodensities may represent prominent perivascular spaces versus microvascular angiopathy. Paranasal sinus disease. Critical care attestation.: If time is entered above; I have spent that time in minutes in the direct care of this critically ill patient, excluding procedure time. ED Disposition Clinical Impression: Seizure, Hypokalemia, Polysubstance abuse Hypertension Qualifiers: Hypertension type: essential hypertension Qualified Code(s): I10 - Essential ( primary) hypertension Disposition: DISCHARGED TO HOME OR SELFCARE Is pt being admited?: No Condition: Stable Instructions: Epilepsy (ED), Polysubstance Abuse (ED), Hypokalemia (ED), Hypertension (ED) Additional Instructions: Please follow-up with your primary care doctor through [facility] and it is recommended that she will also see a neurologist regarding her seizures. Please avoid any possible substance abuse as a will decrease your seizure threshold. I have started you on Keppra, a seizure medication, to be taken twice daily. Return to the emergency department with any worsening of your symptoms or any acute distress. Prescriptions: levETIRAcetam [Keppra TAB] 500 mg PO BID #60 tablet Referrals: RUPERTO LEGER FNP [Primary Care Provider] - 3-5 Days Time of Disposition: 19:46
[2016-05-12] MEDS ORDERED: KEPPRA 1,000 MG/NS 0.75% 100ML 1,000 MG/100 ML BAG IV ONE (16:37)
[2016-05-12] MEDS ORDERED: MORPHINE IV ONE (16:38)
[2016-05-12 17:01] LABS: Eosinophils % (Auto) 9.7 % (0.0-4.3); Hemoglobin 9.4 gm/dl (10.1-14.3); Mean Corpuscular HGB Conc 31 % (30-34); Mean Corpuscular Volume 73 fl (79-97); Platelet Count 221 K/mm3 (140-440); Red Blood Count 4.27 M/mm3 (3.65-5.03); White Blood Count 5.4 K/mm3 (4.5-11.0)
[2016-05-12 17:16] LABS: Mean Corpuscular Hemoglobin 22 pg (28-32); Red Cell Distribution Width 21.3 % (13.2-15.2)
[2016-05-12 17:19] LABS: Alanine Aminotransferase 7 units/L (7-56); Albumin 3.9 g/dL (3.9-5); Alkaline Phosphatase 38 units/L (35-129); Anion Gap 16 mmol/L; BUN/Creatinine Ratio 11.42; Bilirubin,Total 0.3 mg/dL (0.1-1.2); Blood Urea Nitrogen 8 mg/dL (7-17); Calcium 8.9 mg/dL (8.4-10.2); Carbon Dioxide 26 mmol/L (22-30); Chloride 96.6 mmol/L (98-107); Glucose 82 mg/dL (65-100); Sodium 136 mmol/L (137-145); Total Protein 7.7 g/dL (6.3-8.2)
--- NOTE | 2016-05-12 17:33 | Cat Scan Report ---
FINAL REPORT EXAM: CT HEAD/BRAIN WO CON HISTORY: Headache TECHNIQUE: CT imaging acquired through the head without intravenous contrast. Transaxial reformations are provided. PRIORS: None. FINDINGS: The ventricles, cisterns and sulci are normal. No intraparenchymal or extra-axial mass, hemorrhage, or mass effect. Ill-defined hypodensities adjacent to the superior left lateral ventricle and bilaterally adjacent to the basal ganglia. Pascual and white-matter differentiation is otherwise unremarkable. Normal spherical shape of the globes. Partially imaged paranasal sinuses are remarkable for moderate sphenoid, ethmoid and left maxillary mucosal thickening without visualized fluid level. The mastoid air cells are clear. Hyperostosis frontalis. No skull fracture. IMPRESSION: No acute intracranial abnormality. Ill-defined bilateral periventricular hypodensities may represent prominent perivascular spaces or sequela of microvascular angiopathy, among other less common etiologies. Consider MRI follow-up as clinically warranted. Paranasal sinus disease without visualized fluid level, as detailed above, which may contribute to patient's symptoms.
[2016-05-12] MEDS ORDERED: K-DUR PO ONE (18:04)
[2016-05-12] MEDS ORDERED: KEPPRA PO ONE (18:09)
[2016-05-12] MEDS ORDERED: PERCOCET 5/325 PO ONE (18:09)
[2016-05-12 18:25] LABS: Urine Drugs of Abuse Note Disclamer
[2016-05-12 19:02] LABS: Bacteria,Urine 1+ /HPF (Negative); Mucus,Urine FEW /HPF
[2016-05-12 19:03] LABS: Bilirubin,Urine NEG (Negative); Blood,Urine NEG (Negative); Ketones,Urine NEG (Negative); Leukocyte Esterase,Urine TR (Negative); Nitrite,Urine NEG (Negative)
[2016-05-12 20:09] VITALS: BP 154/96
== END 2016-05-12 20:06 | disposition home or self-care (01) ==
LOC: ED 09:40
DX: R56.9 Unspecified convulsions (principal); E87.6 Hypokalemia; F19.10 Other psychoactive substance abuse, uncomplicated; I10 Essential (primary) hypertension; I50.9 Heart failure, unspecified; E11.9 Type 2 diabetes mellitus without complications; Z87.891 Personal history of nicotine dependence
CPT/HCPCS: 36415; 70450; 80053; 80307; 81001; 81025; 82962; 85025; 93005; 93010; 99285; G0480; 80320; J1953; J2270

== ENCOUNTER 2016-05-26 02:57 | Emergency (ER) | payer MEDICARE ==
[2016-05-26 05:47] LABS: Hematocrit 31.5 % (30.3-42.9); Hemoglobin 9.7 gm/dl (10.1-14.3); Mean Corpuscular HGB Conc 31 % (30-34); Mean Corpuscular Volume 73 fl (79-97); Platelet Count 422 K/mm3 (140-440); Red Blood Count 4.33 M/mm3 (3.65-5.03); White Blood Count 10.3 K/mm3 (4.5-11.0)
[2016-05-26 05:49] LABS: Mean Corpuscular Hemoglobin 22 pg (28-32)
[2016-05-26 06:03] LABS: Anion Gap 22 mmol/L; BUN/Creatinine Ratio 21.11; Blood Urea Nitrogen 19 mg/dL (7-17); Calcium 9.5 mg/dL (8.4-10.2); Carbon Dioxide 18 mmol/L (22-30); Chloride 105.5 mmol/L (98-107); Glucose 125 mg/dL (65-100); Potassium 4.3 mmol/L (3.6-5.0); Sodium 141 mmol/L (137-145)
[2016-05-26 06:34] LABS: Basophils % (Manual) 0 % (0.0-1.8); Blastocytes % (Manual) 0 %; Eosinophils % (Manual) 0 % (0.0-4.3)
[2016-05-26 06:35] LABS: Anisocytosis 1+; Diff Status Complete; Hypochromasia 1+; Platelet Estimate Consistent w Auto; Polychromasia Rare; Schistocytes Rare
--- NOTE | 2016-05-26 09:15 | XRay Report ---
Chest 2 views: History: Shortness of breath. Findings: Cardiomegaly. Trachea is midline. Pulmonary venous congestion being more pronounced on the right side. Normal CP angles. No consolidation. Impression: Probable early CHF.
[2016-05-26] MEDS ORDERED: NORCO 5/325 PO ONE (11:42)
[2016-05-26] MEDS ORDERED: LASIX PO ONE (11:42)
--- NOTE | 2016-05-26 11:43 | Emergency Department Report ---
ED Shortness of Breath HPI - General Chief Complaint: Dyspnea/Respdistress Stated Complaint: SOB/CHEST PAIN Time Seen by Provider: 05/26/16 11:27 Source: patient Mode of arrival: Ambulatory Limitations: No Limitations - History of Present Illness Initial Comments: This is a 45-year-old [place] female who reports increased dyspnea over the past several days. She does indicate she has history of CHF. She states that she has not been taking her medications for the past week. She's also had a mild cough. She denies fevers associated with this. She reports normal urination. States he has good urine output when she is taking her Lasix. She is asking for medication refills at this time. MD Complaint: shortness of breath Severity: moderate Pain Scale: 4 Improves With: rest Worsens With: lying flat, exertion Associated Symptoms: cough - Related Data Home Oxygen Therapy: No Home Medications Medication Instructions Recorded Confirmed Last Taken Aspirin EC [Aspirin Enteric Coated 325 mg PO QDAY 02/26/16 02/26/16 Unknown TAB] Cyclobenzaprine HCl [Flexeril 5 MG 10 mg PO TID 02/26/16 02/26/16 Unknown TAB] Metformin HCl [Glucophage] 500 mg PO DAILY 02/26/16 02/26/16 Unknown Previous Rx's Medication Instructions Recorded Last Taken Type ALBUTEROL Inhaler [ProAir HFA 2 puff IH QID PRN #1 inhalation 02/26/16 Unknown Rx Inhaler] Azithromycin [Zithromax Z-JUAN CARLOS] 250 mg PO QDAY #6 tablet 02/26/16 Unknown Rx Prednisone [predniSONE 10 mg 10 mg PO .TAPER #1 tab.ds.pk 02/28/16 Unknown Rx (6-Day Pack, 21 Tabs)] levETIRAcetam [Keppra TAB] 500 mg PO BID #60 tablet 05/12/16 Unknown Rx Amlodipine Besylate [Norvasc] 5 mg PO DAILY #30 tablet 05/26/16 Unknown Rx AtorvaSTATin [Lipitor] 20 mg PO QHS #30 tablet 05/26/16 Unknown Rx Furosemide [Lasix TAB] 20 mg PO QDAY #30 tablet 05/26/16 Unknown Rx Metoprolol Tartrate [Lopressor] 100 mg PO BID #30 tablet 05/26/16 Unknown Rx Potassium Chloride [K-Dur] 20 meq PO QDAY #30 tablet 05/26/16 Unknown Rx oxyCODONE /ACETAMINOPHEN [Percocet 1 tab PO QHS PRN #30 tablet 05/26/16 Unknown Rx 5/325 mg] Allergies Allergy/AdvReac Type Severity Reaction Status Date / Time No Known Allergies Allergy Verified 06/28/15 20:12 ED Review of Systems ROS: Stated complaint: SOB/CHEST PAIN Other details as noted in HPI Comment: All other systems reviewed and negative Constitutional: denies: chills, fever Eyes: denies: eye pain, eye discharge, vision change ENT: denies: ear pain, throat pain Respiratory: cough, shortness of breath. denies: wheezing Cardiovascular: denies: chest pain, palpitations Endocrine: no symptoms reported Gastrointestinal: denies: abdominal pain, nausea, diarrhea Genitourinary: denies: urgency, dysuria, discharge Musculoskeletal: denies: back pain, joint swelling, arthralgia Skin: denies: rash, lesions Neurological: denies: headache, weakness, paresthesias Psychiatric: denies: anxiety, depression Hematological/Lymphatic: denies: easy bleeding, easy bruising ED Past Medical Hx - Past Medical History Hx Hypertension: Yes Hx Congestive Heart Failure: Yes Hx Diabetes: Yes Hx Seizures: Yes (2011) Hx Asthma: No Hx COPD: No Additional medical history: CHRONIC PAIN --RIGHT LEG / LOWER BACK. OBESITY - Surgical History Hx Cholecystectomy: Yes Additional Surgical History: RIGHT LEG SURGERY. . TUBAL LIGATION - Social History Smoking Status: Never Smoker Substance Use Type: None - Medications Home Medications: Home Medications Medication Instructions Recorded Confirmed Last Taken Type ALBUTEROL Inhaler [ProAir HFA 2 puff IH QID PRN #1 inhalation 02/26/16 Unknown Rx Inhaler] Aspirin EC [Aspirin Enteric Coated 325 mg PO QDAY 02/26/16 02/26/16 Unknown History TAB] Azithromycin [Zithromax Z-JUAN CARLOS] 250 mg PO QDAY #6 tablet 02/26/16 Unknown Rx Cyclobenzaprine HCl [Flexeril 5 MG 10 mg PO TID 02/26/16 02/26/16 Unknown History TAB] Metformin HCl [Glucophage] 500 mg PO DAILY 02/26/16 02/26/16 Unknown History Prednisone [predniSONE 10 mg 10 mg PO .TAPER #1 tab.ds.pk 02/28/16 Unknown Rx (6-Day Pack, 21 Tabs)] levETIRAcetam [Keppra TAB] 500 mg PO BID #60 tablet 05/12/16 Unknown Rx Amlodipine Besylate [Norvasc] 5 mg PO DAILY #30 tablet 05/26/16 Unknown Rx AtorvaSTATin [Lipitor] 20 mg PO QHS #30 tablet 05/26/16 Unknown Rx Furosemide [Lasix TAB] 20 mg PO QDAY #30 tablet 05/26/16 Unknown Rx Metoprolol Tartrate [Lopressor] 100 mg PO BID #30 tablet 05/26/16 Unknown Rx Potassium Chloride [K-Dur] 20 meq PO QDAY #30 tablet 05/26/16 Unknown Rx oxyCODONE /ACETAMINOPHEN [Percocet 1 tab PO QHS PRN #30 tablet 05/26/16 Unknown Rx 5/325 mg] ED Physical Exam - General Limitations: No Limitations General appearance: alert, in no apparent distress, obese - Head Head exam: Present: atraumatic, normocephalic - Eye Eye exam: Present: normal appearance, PERRL, EOMI - ENT ENT exam: Present: normal orophraynx, mucous membranes moist - Neck Neck exam: Present: normal inspection - Respiratory Respiratory exam: Present: normal lung sounds bilaterally, rales (soft bibasilar ). Absent: respiratory distress, wheezes - Cardiovascular Cardiovascular Exam: Present: regular rate, normal rhythm. Absent: systolic murmur, diastolic murmur, rubs, gallop - GI/Abdominal GI/Abdominal exam: Present: soft, normal bowel sounds. Absent: distended, tenderness - Extremities Exam Extremities exam: Present: normal inspection - Back Exam Back exam: Present: normal inspection - Neurological Exam Neurological exam: Present: alert, oriented X3 - Psychiatric Psychiatric exam: Present: normal affect, normal mood - Skin Skin exam: Present: warm, dry, intact, normal color. Absent: rash ED Course Vital Signs 05/26/16 05/26/16 05/26/16 04:51 10:16 11:30 Temperature 98.9 F 97.5 F L Pulse Rate 116 H 100 H 94 H Respiratory 20 24 20 Rate Blood Pressure 166/113 172/124 Blood Pressure 166/113 165/108 [Left] O2 Sat by Pulse 96 97 96 Oximetry 05/26/16 05/26/16 05/26/16 12:00 12:10 12:15 Temperature Pulse Rate 91 H Respiratory 20 20 20 Rate Blood Pressure Blood Pressure 161/101 [Left] O2 Sat by Pulse 97 Oximetry - Reevaluation(s) Reevaluation #1: 05/26/16 11:28 ECG at 03 12 with sinus tachycardia at 107 bpm with normal LA and QRS. Normal axis is noted no acute abnormalities noted. Reevaluation #2: Chest x-ray with mild vascular congestion noted. Labs are noted. The BNP is very low. I rest of electrolytes are unremarkable. I did write patient for her routine medications. I feel this will help significantly with her dyspnea symptoms. She's been given referral for primary doctor as well. She agrees to follow-up. She is otherwise stable this time I do not suspect primary cardiac etiology in regards to STEMI or something ischemic in nature. ED Medical Decision Making - Lab Data Result diagrams: 05/26/16 05:30 05/26/16 05:30 Critical care attestation.: If time is entered above; I have spent that time in minutes in the direct care of this critically ill patient, excluding procedure time. ED Disposition Clinical Impression: Bronchitis Congestive heart failure (CHF) Qualifiers: Congestive heart failure type: systolic Congestive heart failure chronicity: acute on chronic Qualified Code(s): I50.23 - Acute on chronic systolic ( congestive) heart failure Disposition: DISCHARGED TO HOME OR SELFCARE Is pt being admited?: No Does the pt Need Aspirin: No Condition: Stable Instructions: Chronic Bronchitis (ED) Additional Instructions: Take your medications as prescribed. Continue on your inhaler as needed for shortness of breath. Prescriptions: AtorvaSTATin [Lipitor] 20 mg PO QHS #30 tablet oxyCODONE /ACETAMINOPHEN [Percocet 5/325 mg] 1 tab PO QHS PRN #30 tablet PRN Reason: Pain Amlodipine Besylate [Norvasc] 5 mg PO DAILY #30 tablet Furosemide [Lasix TAB] 20 mg PO QDAY #30 tablet Metoprolol Tartrate [Lopressor] 100 mg PO BID #30 tablet Potassium Chloride [K-Dur] 20 meq PO QDAY #30 tablet Referrals: PRIMARY CARE, [Primary Care Provider] - 3-5 Days Time of Disposition: 11:44
[2016-05-26 12:39] VITALS: BP 161/101
== END 2016-05-26 12:10 | disposition home or self-care (01) ==
LOC: ED 02:57
DX: J40 Bronchitis, not specified as acute or chronic (principal); I50.23 Acute on chronic systolic (congestive) heart failure; I10 Essential (primary) hypertension; E11.9 Type 2 diabetes mellitus without complications; R56.9 Unspecified convulsions; Z98.51 Tubal ligation status; G89.29 Other chronic pain; Z79.82 Long term (current) use of aspirin
CPT/HCPCS: 36415; 71020; 80048; 83880; 84484; 85007; 85025; 93005; 93010